=== PATIENT | male | born 1955 | race Caucasian/White ===

== ENCOUNTER → 2020-03-23 | Day surgery (SDC) | payer MEDICARE, OTHER ==
[~2020-03-23] MED LIST: Ketamine 200 MG/20 ML MDV IV ONE; Lactated Ringers 1,000 ML IV SCH; Propofol 200 MG/20 ML SDV IV ONE; Scopolamine 1.5 MG Transdermal Patch TRDERM PRN; fentaNYL 100 MCG/2 ML SDV IV ONE
[2020-03-23 11:12] VITALS: BP 121/50; PULSE 76
--- NOTE | 2020-03-23 12:36 | OR ---
DATE OF OPERATION: 03/23/2020 PREOPERATIVE DIAGNOSIS: 1. FAMILY HISTORY OF COLON CANCER. 2. HISTORY OF POLYPS. POSTOPERATIVE DIAGNOSIS: 1. FAMILY HISTORY OF COLON CANCER. 2. HISTORY OF POLYPS. SURGEON: Brant Meraz MD PROCEDURE: FULL-LENGTH COLONOSCOPY WITH FORCEPS POLYP REMOVAL X3, PARTIAL POLYP REMOVAL VIA SNARE X1. ANESTHESIA: MAC. COMPLICATIONS: None. SPECIMEN: 1. Small hyperplastic polyp, cecum. 2. Tubular adenoma, splenic flexure. 3. Two small sessile polyps, proximal descending colon. 4. Large tubulovillous lesion, rectosigmoid junction. RECOMMENDATIONS: The patient's large tubulovillous lesion in the rectal vault was not removed in its entirety as once 2 sections were removed, the base was quite broad. We elected to leave it for expert care via Dr. Valerio just due to its broad base. INDICATIONS: The patient has a family history of colon cancer. He has had multiple scopes in the past. His last one was over 5 years ago where he had 1 benign polyp removed. He is in for a routine followup. DESCRIPTION OF PROCEDURE: The patient was prepped and draped, placed in the left lateral decubitus position. A lubricated Olympus colonoscope was inserted and easily advanced to the cecum. Direct visualization of the ileocecal valve and appendiceal orifice was accomplished. The bowel prep was adequate. Upon withdrawal, the patient had a small sessile polyp right outside the cecal pouch removed in its entirety with a forceps. The rest of the ascending and transverse colon were benign until the splenic flexure where the patient had a small tubular adenoma about 3 mm in size removed in its entirety with a forceps. Just past the splenic flexure, in the proximal descending colon, the patient had 2 more small sessile polyps removed easily with forceps without complication. The rest of the descending and sigmoid colon were completely benign. Around 21 to 22 cm in the rectosigmoid junction, the patient had a large stalk tubulovillous lesion. It felt like the stalk on this was small enough to remove completely and safely. We did take 2 sections of this out which were about 1.5 cm to 2 cm in size, and once we got down to the bottom, there was still residual lesion left quite wide along the haustral fold. We elected to stop at this point just due to the broadness of this villous lesion for expert definitive care. The rest of the rectal vault was benign. Retroflexion showed no perianal lesions. Air was then suctioned and the scope was removed without complication. MATTHIAS/IGLESIA /[id number]
== END ==
LOC: CC.SDS 09:12
PROVIDERS: ATTEND Family Medicine
DX: Z12.11 Encounter for screening for malignant neoplasm of colon (principal); D12.0 Benign neoplasm of cecum; D12.3 Benign neoplasm of transverse colon; D12.4 Benign neoplasm of descending colon; D12.5 Benign neoplasm of sigmoid colon; E78.5 Hyperlipidemia, unspecified; I10 Essential (primary) hypertension; I48.91 Unspecified atrial fibrillation; E55.9 Vitamin D deficiency, unspecified; Z80.0 Family history of malignant neoplasm of digestive organs; Z79.82 Long term (current) use of aspirin; Z79.899 Other long term (current) drug therapy
CPT/HCPCS: 88305; J2704; J3010; J7120

== ENCOUNTER 2020-10-30 15:32 | Emergency (ER) | payer MEDICARE, OTHER ==
[2020-10-30 19:53] VITALS: BP 143/93; PULSE 67
--- NOTE | 2020-10-30 22:25 | ER ---
HISTORY OF PRESENT ILLNESS: Michael is a 65-year-old male who presents to the ER by private vehicle with concerns of a left wrist pain. 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 He states he was trying to catch himself, and again landed on the left hand. At the time of injury, he states pain was about a 4/10. States on his way home, he did notice some increase in swelling, increase in stiffness and discomfort. He felt he better come into the emergency room to be seen. He denies any other injury involved. He states he does have good sensation in all distal digits. Just a lot of discomfort with flexion of the fingers and grabbing things. PAST MEDICAL HISTORY: Please see nurse's note for complete details. PHYSICAL EXAMINATION: VITAL SIGNS: Blood pressure 143/93, temperature of 97.4, oxygen is 97% on room air, pulse is 67, with respirations of 18. GENERAL: Pleasant, cooperative male. Does not appear to be in any acute distress, not acutely ill. HEENT: Grossly unremarkable. Head is normocephalic and atraumatic. MUSCULOSKELETAL: Examination of the left wrist does show some swelling noted. He does have full flexion and extension. Increased discomfort noted with flexion of the wrist. No discomfort with ulnar or radial deviation. Full range of motion of all distal digits. Sensations intact to all distal digits. Radial pulses 2+ and equal bilaterally. Tenderness with palpation over the distal ulna and radius. ASSESSMENT: LEFT WRIST SPRAIN. PLAN: X-ray of the left wrist and hand was completed. I did not see any acute fractures. I discussed treatment with Michael. I did elect to put a prefabricated cock-up wrist splint on. The patient is to utilize RICE therapy, rest, ice, compression, elevation. The patient is advised to ice 20 minutes at a time 4 to 5 times a day. May use Tylenol or ibuprofen for discomfort and swelling. I did discuss with Michael when he is sleeping or he is doing any strenuous activity to be wearing the wrist splint. If pain persists or worsens, I do encouraged a re-evaluation at that time. The patient is in complete understanding, will be discharged in satisfactory condition. HINA/BETSYL /[id number] JANIE
== END 2020-10-30 16:33 | disposition home or self-care (01) ==
LOC: CC.ED 15:32 → SUPCPDRO 15:32 → CC.ED 16:33
DX: S63.502A Unspecified sprain of left wrist, initial encounter (principal); W01.0XXA Fall on same level from slipping, tripping and stumbling without subsequent striking against object, initial encounter
CPT/HCPCS: 73110-LT; 73130-LT; 99283; 99283-25

== ENCOUNTER 2021-09-24 14:59 | Emergency (ER) | payer MEDICARE, OTHER ==
[2021-09-24] MEDS ORDERED: Sodium Chloride 0.9% 10 ML Syringe FLUSH PRN (15:11)
[2021-09-24 15:36] LABS: CHLORIDE,CL 106 mEq/L (98-106); SODIUM,NA 142 mEq/L (136-145)
[2021-09-24 16:40] VITALS: BP 138/79; PULSE 70
[2021-09-25] MEDS ORDERED: Aspirin 81 MG Tab.Chew PO SCH (08:00)
== END 2021-09-24 17:01 ==
LOC: CC.ED 14:59
DX: R07.89 Other chest pain (principal); I48.91 Unspecified atrial fibrillation; E78.00 Pure hypercholesterolemia, unspecified; Z79.899 Other long term (current) drug therapy; Z20.822 Contact with and (suspected) exposure to COVID-19
CPT/HCPCS: 36415; 71046; 80053; 84484; 85025; 85379; 93005; 93010; 99285; A9270; J3490; U0002

== ENCOUNTER → 2022-09-26 | Day surgery (SDC) | payer MEDICARE, OTHER ==
[~2022-09-26] MED LIST changes: -Ketamine 200 MG/20 ML MDV IV ONE; +Ketamine 200 MG/20 ML MDV ONE; -Propofol 200 MG/20 ML SDV IV ONE; +Propofol 200 MG/20 ML SDV ONE; -Scopolamine 1.5 MG Transdermal Patch TRDERM PRN; -fentaNYL 100 MCG/2 ML SDV IV ONE; +fentaNYL 50 MCG/ML SDV ONE
[2022-09-26 12:25] VITALS: BP 110/70; PULSE 50
== END ==
LOC: CC.SDS 08:58
PROVIDERS: ATTEND Family Medicine
DX: Z12.11 Encounter for screening for malignant neoplasm of colon (principal); I10 Essential (primary) hypertension; E55.9 Vitamin D deficiency, unspecified; D64.9 Anemia, unspecified; E78.00 Pure hypercholesterolemia, unspecified; Z86.010 Personal history of colon polyps; Z80.0 Family history of malignant neoplasm of digestive organs; Z79.82 Long term (current) use of aspirin; Z79.899 Other long term (current) drug therapy; Z95.1 Presence of aortocoronary bypass graft; Z86.79 Personal history of other diseases of the circulatory system
CPT/HCPCS: 00812; J2704; J3010; J3490; J7120

== ENCOUNTER 2024-10-11 12:14 | Emergency (ER) | payer BC, MEDICARE ==
[2024-10-11 12:17] VITALS: BP 140/77; PULSE 62
== END 2024-10-11 13:12 | disposition home or self-care (01) ==
LOC: CC.ED 12:14
DX: S83.92XA Sprain of unspecified site of left knee, initial encounter (principal); E78.00 Pure hypercholesterolemia, unspecified; Z79.82 Long term (current) use of aspirin; Z79.899 Other long term (current) drug therapy; X50.9XXA Other and unspecified overexertion or strenuous movements or postures, initial encounter
CPT/HCPCS: 73562-LT; 99283